=== PATIENT | female | born 1990 | race Two or more races ===

== ENCOUNTER 2024-04-30 10:23 | Emergency (ER) | payer OTHER ==
[~2024-04-30] VITALS: Ht 160 cm; Wt 60.3 kg
[2024-04-30] MEDS ORDERED: 0.9 % SODIUM CHLORIDE 1,000 ML IV STA (10:38)
[2024-04-30] MEDS ORDERED: FAMOTIDINE/PF 20 MG in 0.9 % SODIUM CHLORIDE 8 ML IV PUSH STA (10:38)
[2024-04-30] MEDS ORDERED: ONDANSETRON HCL 2 MG/ML VIAL IV STA (10:38)
[2024-04-30] MEDS ORDERED: ONDANSETRON HCL 2 MG/ML VIAL ONE (10:51)
[2024-04-30] MEDS ORDERED: FAMOTIDINE/PF 20 MG/2 ML VIAL ONE (10:52)
[2024-04-30 11:25] LABS: HEMATOCRIT 40.2 % (36.0-45.00); HEMOGLOBIN 13.9 g/dL (12.0-15.00); MEAN CELL VOLUME 88.8 fL (80.00-100.00); MEAN CORPUSCULAR HEMOGLOBIN 30.7 pg (27.00-32.0); MEAN CORPUSCULAR HGB CONC 34.6 g/dl (32.0-36.0); PLATELET COUNT 328 K/uL (150-450); RED BLOOD COUNT 4.53 M/uL (4.00-6.00); RED CELL DISTRIBUTION WIDTH 14.3 % (11.5-14.5)
[2024-04-30 12:10] LABS: CALCIUM 9.3 mg/dL (8.5-10.1); CREATININE SERUM 0.77 mg/dL (0.55-1.02); GFR 86.33
[2024-04-30 12:13] LABS: POTASSIUM 4.44 mEq/L (3.5-5.1)
[2024-04-30 13:37] LABS: URINE APPEARANCE Cloudy; URINE BILIRRUBIN Negative (NEGATIVE); URINE BLOOD NHT; URINE COLOR Yellow; URINE GLUCOSE Negative (NEGATIVE); URINE KETONE Trace (NEGATIVE); URINE LEUKOCYTE Negative; URINE NITRATE Negative; URINE PROTEIN 30 (NEGATIVE); URINE UROBILINOGEN 0.2 E.U./dl
[2024-04-30 13:41] LABS: URINE BACTERIA 2925.5 uL (0.0-1933); URINE RBC 90.2 uL (0.0-20.8); URINE WBC 21.4 uL (0.0-23.2)
[2024-04-30] MEDS ORDERED: MEPERIDINE HCL 25 MG/ML AMPUL IV ONE (14:00)
[2024-04-30] MEDS ORDERED: PROMETHAZINE HCL 25 MG/ML AMPUL ONE (15:30)
[2024-04-30] MEDS ORDERED: PROMETHAZINE HCL 25 MG/ML AMPUL IM ONE (15:30)
== END 2024-04-30 15:46 | disposition home or self-care (01) ==
LOC: ER 10:24
PROVIDERS: Emergency Medicine
DX: K52.89 Other specified noninfective gastroenteritis and colitis (principal); R11.10 Vomiting, unspecified; Z20.822 Contact with and (suspected) exposure to COVID-19